=== PATIENT | female | born 1985 | race African-American/Black ===

== ENCOUNTER 2017-04-17 18:00 | Emergency (ER) | payer OTHER, MEDICAID ==
[2017-04-17] MEDS: DEXAMETHASONE 10 MG/ML 1 ML INJ IM (20:42)
[2017-04-17] MEDS: IPRATROPIUM (NEB) 0.5 MG/2.5 ML AMP HHN (21:05)
[2017-04-17] MEDS: ALBUTEROL 0.083% (NEB) 2.5 MG/3 ML AMP HHN (21:05)
== END 2017-04-17 22:18 | disposition home or self-care (01) ==
LOC: FTE 18:00
DX: J06.9 Acute upper respiratory infection, unspecified (principal); J45.901 Unspecified asthma with (acute) exacerbation; Z79.82 Long term (current) use of aspirin; Z87.891 Personal history of nicotine dependence
CPT/HCPCS: 71045; 94644; 96372; 99284-25